=== PATIENT | male | born 1960 | race Caucasian/White ===

== ENCOUNTER → 2021-09-26 | Outpatient (CLI) | payer MEDICARE ==
[~2021-09-26] MED LIST: ALBUTEROL1.25 MG/3 INH; ALIROCUMAB 150 MG/ML; ARNUITY ELLIPT50 MCG INH; DRAMAMINE LESS25 MG PO; HYDROXYZINE PAM25 MG PO; IBUPROFEN600 MG PO; ISOSORBIDE MONO30 MG PO; METOPROLOL SUC100 MG PO; PLAVIX 75 MG TA75 MG PO; ROXICODONE5 MG PO; SINGULAIR10 MG PO; SYMBICORT 16010.2 GM INH; ZOLOFT50 MG PO
== END ==
LOC: EMI 08:14
DX: S22.080A Wedge compression fracture of T11-T12 vertebra, initial encounter for closed fracture (principal); R93.2 Abnormal findings on diagnostic imaging of liver and biliary tract; R93.7 Abnormal findings on diagnostic imaging of other parts of musculoskeletal system; Z85.05 Personal history of malignant neoplasm of liver
CPT/HCPCS: 72146

== ENCOUNTER 2021-10-04 12:13 | Inpatient (IN) | payer MEDICARE ==
[~2021-10-04] VITALS: Ht 165.1 cm; Wt 73.5 kg
[2021-10-04 12:50] LABS: HEMOGLOBIN 14.1 gm/dl (14.0-17.5); RED BLOOD COUNT 4.71 M/UL (4.20-5.50); WHITE BLOOD COUNT 10.2 K/UL (4.5-11.0)
[2021-10-04] MEDS ORDERED: IBUPROFEN600 MG PO (12:56)
[2021-10-04] MEDS ORDERED: ALIROCUMAB 150 MG/ML (12:59)
[2021-10-04] MEDS ORDERED: ZOLOFT50 MG PO (13:00)
[2021-10-04] MEDS ORDERED: HYDROXYZINE PAM25 MG PO (13:00)
[2021-10-04] MEDS ORDERED: ROXICODONE5 MG PO (13:01)
[2021-10-04] MEDS ORDERED: PLAVIX 75 MG TA75 MG PO (13:02)
[2021-10-04] MEDS ORDERED: DRAMAMINE LESS25 MG PO (13:02)
[2021-10-04] MEDS ORDERED: METOPROLOL TAR100 MG PO (13:04)
[2021-10-04] MEDS ORDERED: ISOSORBIDE MONO30 MG PO (13:04)
[2021-10-04] MEDS ORDERED: SINGULAIR10 MG PO (13:05)
[2021-10-04] MEDS ORDERED: SYMBICORT 16010.2 GM INH (13:06)
[2021-10-04] MEDS ORDERED: ARNUITY ELLIPT50 MCG INH (13:06)
[2021-10-04] MEDS ORDERED: ALBUTEROL1.25 MG/3 INH (13:07)
[2021-10-05 07:11] LABS: WHITE BLOOD COUNT 7.7 K/UL (4.5-11.0)
[2021-10-05 07:12] LABS: RED BLOOD COUNT 4.12 M/UL (4.20-5.50)
[2021-10-05] MEDS ORDERED: ZOFRAN ODT 4 MG4 MG PO (09:52)
[2021-10-05] MEDS ORDERED: DOCUSATE SODIU100 MG PO (09:53)
--- NOTE | 2021-10-05 10:32 | NUR ---
DR. LOVE NOTIFIED OF BP 90/50, NEW ORDERS NOTED. WILL CONTINUE TO MONITOR.
[2021-10-06] MEDS ORDERED: ELIQUIS5 M1 PO (09:06)
--- NOTE | 2021-10-06 11:03 | NUR ---
1020- [place] patient yelling for help. Entered room and found patient on knees next to bed with cane laying on top of bed. Patient stated he was walking to bed from the couch and his legs gave out on him. Non skid footwear on at time. Patient assessed and assisted into chair with chair alarm on. Abrasion noted to left elbow, bruising noted to bilateral knees. Patient with complaints of chronic back pain. Patient educated on the need to call out when assistance is needed. MD and warehouse traffic supervisor notified of fall. Will continue to monitor.
[2021-10-06 12:37] LABS: HEMOGLOBIN 12.7 gm/dl (14.0-17.5); RED BLOOD COUNT 4.25 M/UL (4.20-5.50); WHITE BLOOD COUNT 10.5 K/UL (4.5-11.0)
[2021-10-07 09:32] LABS: HEMOGLOBIN 12.8 gm/dl (14.0-17.5); RED BLOOD COUNT 4.42 M/UL (4.20-5.50); WHITE BLOOD COUNT 9.9 K/UL (4.5-11.0)
== END 2021-10-07 15:55 | disposition home or self-care (01) | DRG 478 ==
LOC: OR 12:13 → M/S 20:02 → OR 23:39 → M/S 10-05
PROVIDERS: Nurse Practitioner Family; ADMIT Orthopaedic Surgery
PROC: 0PS43ZZ Reposition Thoracic Vertebra, Percutaneous Approach (ICD-10-PCS; 2021-10-04)
PROC: 0PU43JZ Supplement Thoracic Vertebra with Synthetic Substitute, Percutaneous Approach (ICD-10-PCS; 2021-10-04)
PROC: 0PB40ZX Excision of Thoracic Vertebra, Open Approach, Diagnostic (ICD-10-PCS; principal; 2021-10-04 10:45)
DX: M48.54XA Collapsed vertebra, not elsewhere classified, thoracic region, initial encounter for fracture (principal); C22.8 Malignant neoplasm of liver, primary, unspecified as to type; Z20.822 Contact with and (suspected) exposure to COVID-19; N17.9 Acute kidney failure, unspecified; I13.0 Hypertensive heart and chronic kidney disease with heart failure and stage 1 through stage 4 chronic kidney disease, or unspecified chronic kidney disease; E87.1 Hypo-osmolality and hyponatremia; I50.9 Heart failure, unspecified; E11.22 Type 2 diabetes mellitus with diabetic chronic kidney disease; J44.9 Chronic obstructive pulmonary disease, unspecified; N18.9 Chronic kidney disease, unspecified; Z96.641 Presence of right artificial hip joint; I95.2 Hypotension due to drugs; T39.95XA Adverse effect of unspecified nonopioid analgesic, antipyretic and antirheumatic, initial encounter; F17.210 Nicotine dependence, cigarettes, uncomplicated; I48.91 Unspecified atrial fibrillation; F32.A Depression, unspecified; F41.9 Anxiety disorder, unspecified; K21.9 Gastro-esophageal reflux disease without esophagitis; E11.40 Type 2 diabetes mellitus with diabetic neuropathy, unspecified; E78.5 Hyperlipidemia, unspecified; R00.1 Bradycardia, unspecified; Z95.5 Presence of coronary angioplasty implant and graft; Z82.3 Family history of stroke; Z80.9 Family history of malignant neoplasm, unspecified; Z82.49 Family history of ischemic heart disease and other diseases of the circulatory system; Z79.01 Long term (current) use of anticoagulants; Z86.718 Personal history of other venous thrombosis and embolism; Z95.1 Presence of aortocoronary bypass graft; Z87.01 Personal history of pneumonia (recurrent); Z79.1 Long term (current) use of non-steroidal anti-inflammatories (NSAID); I25.2 Old myocardial infarction; Z79.4 Long term (current) use of insulin; Z86.73 Personal history of transient ischemic attack (TIA), and cerebral infarction without residual deficits
CPT/HCPCS: 36415; 71045; 72070; 72100; 73562; 80048; 80053; 82962; 83036; 85007; 85025; 85027; 93005; 94640; 94664; 97116-GP-CQ; 97162; 97166; 97535; C1713; J0690; J1100; J2001; J2405; J2704; J2710; J3010; J7120; Q9967; U0002